=== PATIENT | female | born 1995 | race Two or more races ===

== ENCOUNTER 2016-11-28 20:27 | Emergency (ER) | payer OTHER ==
[~2016-11-28] VITALS: Ht 165.1 cm; Wt 111.0 kg
[2016-11-28 21:16] VITALS: BP 121/88
[2016-11-28] MEDS ORDERED: SULFAMETHOX/TRIMETH DS 800-160 MG/TABLET PO ONE (21:30)
[2016-11-28] MEDS ORDERED: CEPHALEXIN MONOHYDRATE 500 MG CAPSULE PO ONE (21:30)
== END 2016-11-28 21:54 | disposition home or self-care (01) ==
LOC: EMS 20:28
DX: L02.416 Cutaneous abscess of left lower limb (principal)
CPT/HCPCS: 99283